=== PATIENT | male | born 1980 | race Caucasian/White ===

== ENCOUNTER 2017-05-17 20:18 | Emergency (ER) | payer BC ==
[~2017-05-17] VITALS: Ht 190.5 cm; Wt 106.3 kg
[2017-05-17 20:44] LABS: HEMOGLOBIN 16.5 G/DL (12.5-16.6); MCH 30.5 PG (29.0-34.0); MCHC 35.1 G/DL (30.0-36.0); MCV 86.9 FL (86-99); PLATELET COUNT 245 K/uL (156-360); RBC DIS.WIDTH-CV 12.4 % (11.8-14.6); RBC DIS.WIDTH-SD 39.7 % (39-53); RED BLOOD COUNT 5.41 M/uL (4.00-5.50); WHITE BLOOD COUNT 10.6 K/uL (4.1-10.2)
[2017-05-17 20:52] LABS: ALBUMIN 4.4 g/dL (3.2-4.8); CHLORIDE 104 mEq/L (99-109); POTASSIUM 3.8 mEq/L (3.7-5.4); SODIUM 139 mEq/L (136-147)
[2017-05-17 20:55] LABS: GLUCOSE 112 mg/dL (70-99); TOTAL PROTEIN 7.3 g/dL (6.4-8.3)
[2017-05-17 20:57] LABS: TOTAL BILIRUBIN 1.1 mg/dL (0.0-1.0)
[2017-05-17 20:58] LABS: ALKALINE PHOSPHATASE 76 IU/L (3-129)
[2017-05-17 20:59] LABS: UREA NITROGEN (BUN) 11 mg/dL (9-23)
[2017-05-17 21:00] LABS: AST (GOT) 15 IU/L (2-34); GFR ESTIMATE (CALCULATED) > 59 mL/min/ (58.99-99999)
[2017-05-17 21:01] LABS: ALT (GPT) 23 IU/L (3-49)
[2017-05-17 21:19] LABS: APPEARANCE SL.HAZY ((CLEAR)); BILIRUBIN NEGATIVE; BLOOD SMALL; COLOR YELLOW ((YELLOW)); GLUCOSE (STRIP) NEGATIVE; KETONES NEGATIVE; LEUKOCYTES NEGATIVE; NITRITE NEGATIVE; PROTEIN (STRIP) 30; UROBILINOGEN 0.2 MG/DL (0.2-1.0)
[2017-05-17 21:52] LABS: BACTERIA 1+ /HPF; EPITHELIAL CELLS 1+ /HPF; MUCUS 4+ /LPF; RED BLOOD CELLS 0-5 /HPF (0-5); UCUL ADDED? NO; WHITE BLOOD CELLS 0-5 /HPF (0-5)
[2017-05-17 23:40] LABS: LIPASE 21 U/L (1.0-51.0)
[2017-05-18] MEDS ORDERED: ZOFRAN ODT8 MG PO (00:57)
[2017-05-18] MEDS ORDERED: BENTYL20 MG PO (00:57)
[2017-05-18 01:15] VITALS: BP 117/72
== END 2017-05-18 01:20 | disposition home or self-care (01) ==
LOC: EME 20:18
DX: R11.2 Nausea with vomiting, unspecified (principal); R19.7 Diarrhea, unspecified; R10.9 Unspecified abdominal pain; E86.0 Dehydration
CPT/HCPCS: 80053; 81003; 83690; 85027; 87493; 99281; 99284; J0500; J1885; J2405; J7030